=== PATIENT | female | born 1940 | race Asian ===

== ENCOUNTER → 2024-06-05 | Day surgery (SDC) | payer MEDICARE, BC ==
[~2024-06-05] VITALS: Ht 154.9 cm; Wt 49.4 kg
[~2024-06-05] MED LIST: ABAT125S SQ; CALC-1042 PO; CHOL200059 PO; DENO60DI SQ; FLUT1AER IH; GLYCOPYRROLATE 0.2 MG/ML 2ML VIAL ONE; LEFL10TA19 PO; OMEG-118 PO; ONDANSETRON HCL 4MG/2ML INJ IV PRN; PROPOFOL 200MG/20ML VIAL IV ONE; SIMETHICONE 40 MG/0.6 ML 15ML ONE
[2024-06-05 09:24] LABS: BASOPHILS % 1.1 % (0.0-2.0); EOSINOPHILS % 4.9 % (0.0-5.0); HEMATOCRIT. 33.4 % (36.0-48.0); HEMOGLOBIN. 10.9 g/dL (12.0-16.0); LYMPHOCYTES % 25.6 % (20.0-50.0); MEAN CORPUSCULAR HEMOGLOBIN 28.1 pg (28.0-32.0); MEAN CORPUSCULAR HGB CONC 32.5 g/dL (31.0-37.0); MEAN CORPUSCULAR VOLUME 86.6 fL (81.0-99.0); MEAN PLATELET VOLUME 8.1 fl (7.4-10.4); MONOCYTES % 11.9 % (2.0-8.0); NEUTROPHILS % 56.5 % (40.0-76.0); PLATELET 234 x1000/uL (130-400); RED BLOOD CELL COUNT 3.86 mill/uL (4.2-5.4); RED CELL DISTRIBUTION WIDTH 14.6 % (11.6-14.6); WHITE BLOOD COUNT 5.2 x1000/uL (4.5-11.0)
[2024-06-05 09:36] LABS: POTASSIUM 3.9 mEq/L (3.5-5.1)
[2024-06-05 09:37] LABS: CALCIUM 9.4 mg/dL (8.7-10.4)
[2024-06-05 09:42] LABS: CREATININE 0.9 mg/dL (0.6-1.0)
[2024-06-05] MEDS: LACTATED RINGERS 1,000 ML IV SCH (09:42)
== END | disposition home or self-care (01) ==
LOC: OR 08:40
PROVIDERS: ATTEND Internal Medicine Gastroenterology
DX: R63.4 Abnormal weight loss (principal); K25.9 Gastric ulcer, unspecified as acute or chronic, without hemorrhage or perforation; K31.89 Other diseases of stomach and duodenum; J45.909 Unspecified asthma, uncomplicated; K29.70 Gastritis, unspecified, without bleeding; M06.9 Rheumatoid arthritis, unspecified; M81.0 Age-related osteoporosis without current pathological fracture; Z79.899 Other long term (current) drug therapy; Z98.890 Other specified postprocedural states
CPT/HCPCS: 43239; 93005; 80048; 85025; 36415; 88305; J3490; J2704

== ENCOUNTER 2024-08-22 08:40 | Day surgery (SDC) | payer MEDICARE, BC ==
[~2024-08-22] VITALS: Ht 154.9 cm; Wt 48.5 kg
[~2024-08-22 08:40] MED LIST changes: -GLYCOPYRROLATE 0.2 MG/ML 2ML VIAL ONE; -ONDANSETRON HCL 4MG/2ML INJ IV PRN; +PANT40TA51 PO; -PROPOFOL 200MG/20ML VIAL IV ONE; -SIMETHICONE 40 MG/0.6 ML 15ML ONE
[2024-08-22 09:12] LABS: BASOPHILS % 0.9 % (0.0-2.0); EOSINOPHILS % 5.4 % (0.0-5.0); HEMATOCRIT. 33.7 % (36.0-48.0); HEMOGLOBIN. 10.7 g/dL (12.0-16.0); LYMPHOCYTES % 21.9 % (20.0-50.0); MEAN CORPUSCULAR HEMOGLOBIN 27.5 pg (28.0-32.0); MEAN CORPUSCULAR HGB CONC 31.8 g/dL (31.0-37.0); MEAN CORPUSCULAR VOLUME 86.4 fL (81.0-99.0); MEAN PLATELET VOLUME 7.6 fl (7.4-10.4); MONOCYTES % 14.4 % (2.0-8.0); NEUTROPHILS % 57.4 % (40.0-76.0); PLATELET 218 x1000/uL (130-400); RED CELL DISTRIBUTION WIDTH 14.3 % (11.6-14.6); WHITE BLOOD COUNT 4.4 x1000/uL (4.5-11.0)
[2024-08-22 09:19] LABS: CALCIUM 9.5 mg/dL (8.7-10.4)
[2024-08-22] MEDS ORDERED: LACTATED RINGERS 1,000 ML IV SCH (09:30)
[2024-08-22] MEDS ORDERED: PROPOFOL 200MG/20ML VIAL IV ONE (12:07)
== END 2024-08-22 14:00 | disposition home or self-care (01) ==
LOC: OR 08:40
PROVIDERS: ATTEND Internal Medicine Gastroenterology
DX: R63.4 Abnormal weight loss (principal); K29.50 Unspecified chronic gastritis without bleeding; K31.89 Other diseases of stomach and duodenum; I44.4 Left anterior fascicular block; J45.909 Unspecified asthma, uncomplicated; I10 Essential (primary) hypertension; M06.9 Rheumatoid arthritis, unspecified; M81.0 Age-related osteoporosis without current pathological fracture; Z79.899 Other long term (current) drug therapy; Z98.890 Other specified postprocedural states; Z87.11 Personal history of peptic ulcer disease
CPT/HCPCS: 43239; 93005; 80048; 85025; 36415; 88312; 88313; 88305; J2704